=== PATIENT | male | born 1955 | race Caucasian/White ===

== ENCOUNTER 2018-12-27 17:19 | Emergency (ER) | payer OTHER, SELFPAY ==
[2018-12-27 17:20] VITALS: BP 141/84; PULSE 91; RESP 18; TEMP 36.7; O2SAT 98; BMI 29.5
--- NOTE | 2018-12-27 17:57 | CT_ITS ---
STUDY: CT ABDOMEN AND PELVIS WITH CONTRAST REASON FOR EXAM: Male, 63 years old. Midline pain, history of hernia RADIATION DOSAGE (If Supplied By Facility): CTDIvol = ( 17.32 ) mGy, DLP = ( 1003.94 ) mGycm TECHNIQUE: Transaxial images were obtained from the dome of the diaphragm to the symphysis pubis without oral contrast. 15 Oral Gastrografin was administered. Sagittal and coronal images were reconstructed. Individualized dose optimization techniques were used for this CT. COMPARISON: None. FINDINGS: This is a limited non-IV and nonoral contrast study. There is mild scarring within the right middle lobe and right lower lobe.. The visualized portions of the heart are within normal limits. Normal liver. Normal gallbladder and extrahepatic biliary system. Normal spleen. Normal pancreas. Normal bilateral adrenal glands. Normal right kidney. Normal left kidney. Normal visualized stomach. There is a duodenal diverticulum. Normal small intestine. There are scattered colonic diverticula.. The appendix is visualized and appears normal. Normal abdominal aorta. Normal inferior vena cava. Normal retroperitoneum. There is distention of the bladder. There is large midline anterior abdominal wall fatty hernia within the upper abdomen. There is stranding within the fat within the hernia sac and within the adjacent omentum. There is significant multilevel lumbar spine disc osteophyte complexes, central canal and foraminal stenoses CT/Abdomen/Pel W ORAL Cont Only IMPRESSION: Limited non-IV and nonoral contrast study large midline anterior abdominal wall fatty hernia within the upper abdomen. There are inflammatory changes stranding within the fat within the hernia sac and within the adjacent omentum Scattered colonic diverticula, no diverticulitis Duodenal diverticulum Distended bladder Multilevel spondylosis lumbar spine disc osteophyte complexes significant multilevel central canal and foraminal stenoses, this could be further evaluated with MR lumbar spine Electronically Signed: Benjamin Shankar, at 20:15 EDT Tel , Service support ,
[2018-12-27 18:33] LABS: Absolute Lymphocyte Count 5.08 X10^3/ul (0.83-4.51); Absolute Neutrophil Count 2.7 X10^3/uL (2.0-7.7); Basophil# 0.16 X10^3/uL; Basophil% 1.8 % (0-1); Eosinophil# 0.11 X10^3/uL; Eosinophils% 1.2 % (0-5); Hematocrit 41.6 % (40-54); Hemoglobin 14.2 g/dl (13.0-16.5); Lymphocyte # 5.08 X10^3/ul (4.0); Lymphocyte % 56.6 % (19-41); Mean Corp Hgb Conc 34.1 g/gl (32-36); Mean Corpuscular Hgb 36.8 pg (27.0-32.0); Mean Corpuscular Volume 107.8 fL (80-94); Neutrophil # 2.71 X10^3/uL (2.7-7.7); Neutrophil % 30.2 % (47-70); Platelet Count 297 K/mm3 (150-450); RBC Distribution Width CV 13.5 % (11.6-14.6); RBC Distribution Width SD 53.1 fl (35.1-43.9); Red Blood Count 3.86 M/mm3 (4.6-6.2)
[2018-12-27 18:35] LABS: Differential Indicated SCAN CRITERIA MET; POSITIVE COUNT NO; POSITIVE DIFFERENTIAL YES; POSITIVE MORPHOLOGY YES
[2018-12-27 18:51] LABS: Anion Gap 7 (5-15); BUN 18 mg/dL (7-18); BUN/Creat Ratio 13.3 RATIO (10-20); Calcium,Total 8.9 mg/dL (8.5-10.1); Chloride 106 mmol/L (98-107); Creatinine, Serum 1.35 mg/dL (0.70-1.30); EST Glomerular Filtration Rate 57 mL/min (>60); Est Glom Filt Rate - Afr Amer 69 mL/min (>60); Estimated Creatinine Clearance 66.81 ml/min; Glucose 103 mg/dL (74-106); Potassium 4.4 mmol/L (3.5-5.1); Sodium Level 139 mmol/L (136-145)
[2018-12-27 18:54] LABS: Differential Comment SCANNED
[2018-12-27 19:27] VITALS: RESP 16
[2018-12-27 21:38] VITALS: BP 144/85; PULSE 77; RESP 18; O2SAT 100
--- NOTE | 2018-12-27 21:48 | ED.DEP ---
ED Disposition - Plan for ED Patient: Instructions: What Is a Hernia? Referrals: Tamy Betancourt MD [STAFF PHYSICIAN] -
--- NOTE | 2018-12-27 22:04 | ED.VISSUMM ---
- ER Visit Summary Date of Service: 12/27/18 Chief Complaint: Abdominal pain History of Present Illness: The patient is a 63 M presenting with abdominal pain. He states this started 3 weeks ago. He states he initially had fever, nausea, dry heaves. He states the fever and nausea has improved. He continues to have mid abdominal pain. He has a history of a hernia. He has never had this evaluated. He has had it for several years. He believes that the episodes of dry heaving have made his hernia worse. Denies other complaints. Physical Examination: Vitals are stable. Patient is afebrile. Alert no acute distress. HEENT exam is unremarkable. Neck is supple. Lungs are clear and equal bilaterally. Heart is regular rate and rhythm. Abdomen is soft abdominal wall hernia which is soft and reducible. Extremities are unremarkable. Skin is warm and dry. Remainder of exam is unremarkable. Emergency Department Course and Treatment: CBC, chemistries unremarkable other than creatinine 1.35. CT abdomen pelvis shows large midline anterior abdominal wall fatty hernia within the upper abdomen. There are inflammatory changes stranding within the fat within the hernia sac and within the adjacent omentum Scattered colonic diverticula, no diverticulitis. Duodenal diverticulum. Distended bladder. Multilevel spondylosis lumbar spine disc osteophyte complexes significant multilevel central canal and foraminal stenoses, this could be further evaluated with MR lumbar spine. On reevaluation, patient's pain improved. He declined pain medication. Discussed with Dr. Betancourt. She will see the patient in her office. Advised return to ED for worsening symptoms. Disposition: Discharge home Impression: Abdominal wall hernia This note was generated with [employer] dictation software. It may contain incorrect words, spelling, and punctuation that were not noted in review of the chart prior to signing ED Disposition - Plan for ED Patient: Instructions: What Is a Hernia? Referrals: Tamy Betancourt MD [STAFF PHYSICIAN] -
--- NOTE | 2018-12-27 22:18 | ED.RN ---
PT GIVEN WRITTEN AND VERBAL DISCHARGE INSTRUCTIONS. PT VERBALIZES UNDERSTANDING. IV D/C BY TENISHA HERNANDEZ. COVERED WITH 2X2 GAUZE AND PAPER TAPE. PT AMBULATES OUT OF DEPT WITH .
== END 2018-12-27 22:19 | disposition home or self-care (01) ==
PROVIDERS: Emergency Provider Emergency Medicine
DX: K43.9 Ventral hernia without obstruction or gangrene (principal); Z72.0 Tobacco use
CPT/HCPCS: 74176; 80048; 85025; 96374; 96375; 99283; A4216; J2405

== ENCOUNTER 2019-01-18 07:41 | Day surgery (SDC) | payer OTHER, SELFPAY ==
[2018-12-29 09:52] VITALS: BMI 29.5
--- NOTE | 2018-12-29 11:33 | HP_ITS ---
Intake Vital Signs 12/29/18 Body Mass Index (BMI) 29.5 12/29/18 Height 6 ft 1.5 in 12/29/18 Weight: 240 lb 12/29/18 Body Mass Index (BMI) 31.2 12/29/18 Blood Pressure 127/82 H 12/29/18 Blood Pressure Location Rt brachial 12/29/18 Blood Pressure Position Sitting 12/29/18 Respiratory Rate 14 12/29/18 Pulse Rate 85 12/29/18 Pulse Source Monitor 12/29/18 Temperature 98.3 F 12/29/18 Temperature Source Oral 12/29/18 Pulse Ox 97 12/29/18 Oxygen Delivery Method room air Intake Visit Reasons: ABDOMINALHERNIA/SEEN IN ER [employer] S[employer] C[employer] Required: No Is patient in pain?: No Allergies No Known Allergies Allergy (Verified 12/29/18 09:51) Medications NK 12/27/18 [History Confirmed 12/29/18] PFSH Medical History Hernia (Acute) Surgical History Hx of elbow surgery (Acute) Family History Son Asthma Mother Cancer Unknown what type Social History Smoking Status: Never smoker second hand exposure: No alcohol intake: never substance use type: does not use caffeine: Yes what type of physical activity do you participate in: none frequency: does not exercise seatbelt use: always HPI HPI HPI: VEL BLANCO, is a 63 M who presents to the office today for HPI HPI Surgical H&P: Yes HPI: VEL BLANCO, is a 63 M who presents to the office today for ventral hernia. Patient states he has had this for about 20 years. It has gotten bigger over the years. Patient currently denies any abdominal pain however he does have pain with palpation. Patient came to the ER due to abdominal pain which was diffuse. CT abdomen pelvis did show the ventral hernia with intra- abdominal fat. Patient states prior to going to the ER on 12/27/2018 he was sick for about 3 weeks after he scratched by a cat. He states he had fevers and dry heaves denies any diarrhea. Patient notes that the pain on 12/27/2018 after getting a hug at [employer] and it almost dropped into his knees per patient. Patient states the pain was a 10 out of 10 with palpation in the ER but that did improve and he was able be discharged home. Patient is never had any abdominal surgeries. Patient denies any nausea or vomiting currently. Patient states he has daily bowel months denies any blood. Denies any family history of colon cancer. Denies ever having a previous colonoscopy. ROS General General: No weight change or fatigue Gastro Gastrointestinal: Yes abdominal pain (With palpation of the hernia), No nausea or vomiting, No diarrhea, No constipation, No blood in stool, No acid reflux, No hemorrhoids, No ulcers, No gallbladder problem, No black,tarry stools Exam Const General: cooperative, comfortable, no acute distress Resp Effort & Inspection: normal respiratory effort Cardio Rate: regular rate GI Inspection: non-distended Palpation: soft, no guarding, hernia (Ventral hernia about 2-1/2 x 2 and half centimeters on exam, reduce), tender (At hernia with palpation) Assessment & Plan Problems 1. Ventral hernia without obstruction or gangrene K43.9 2. Encounter for screening for malignant neoplasm of colon Z12.11 Plan Discussed with patient that we can do ventral hernia repair with mesh open possible laparoscope to take a look to make sure that the mesh is laying well. Discussed the procedure including but not limited to risk of bleeding, infection, removal of mesh if gotten infected, seroma, injury to the organ i.e. small bowel or colon, recurrent hernia, and anesthesia patient had no further questions this time. Did discuss with patient that he is due for screening colonoscopy and would prefer to do that first prior to placing the mesh. Patient was agreeable to proceed with screening colonoscopy and then will plan to schedule the ventral hernia repair with mesh. I have discussed the above with the patient. I have offered the patient colonoscopy for evaluation. I have explained the risks/benefits of the procedure and described the procedure. I have discussed the risks with the patient, including but not limited to: infection, bleeding, perforation of the GI tract requiring emergency surgery, inability to complete the procedure, injury to any internal organs, complications of anesthesia, etc. - the patient understands and agrees to proceed. I have answered all the patient's questions to the patient's satisfaction and the patient has no further questions. The patient has been given instructions for the colon cleansing preparation. 1 day of clears, MiraLAX Dulcolax split prep Tamy Betancourt M.D. Pager: [phone] [facility] [address] [place] [address], [facility], [address] [place] [id number] Office: [phone] Orders Orders: Colonoscopy Today Plan Detail Follow Up We will schedule screening colonoscopy once complete we will schedule ventral hernia repair with mesh Coding Level of Care Code Off vis,new,level 3 Diagnoses Ventral hernia without obstruction or gangrene K43.9 Encounter for screening for malignant neoplasm of colon Z12.11 12/29/18 1134 <Electronically signed by Tamy Colmenares am, MD> Date _ Tamy Betancourt MD I have re-examined the patient. There are no clinical changes since date of exam.
--- NOTE | 2019-01-18 | COLBX_PTH ---
PATIENT: VEL BLANCO LOC: [facility] U#:[id number] AGE/SX: 63/M ROOM: RE01/18/[address]: Dr. Tamy Betancourt MD : 1955 BED: DIS: 01/18/2019 SPEC #: [id number] RECD: 01/18/19 12:40 STATUS: FELICITY NOEMI #: [id number] BIBI: 01/18/19 00:[address]: Tamy Betancourt DEPT: SURGICAL PATHOLOGY RECD BY: Parker Her ENTERED: 01/18/19 12:41 SP TYPE: COLON BX OTHR DR: No Primary Care Phys Tissues: A - Transverse colon B - Transverse colon C - Descending colon Procedures: Surgery Specimen Level IV HEADER OPERATION: Colonoscopy (MAC) PRE-OP DIAGNOSIS: Screening, ventral hernia TISSUE SUBMITTED: A - Proximal transverse colon polyps, B - Biopsy of proximal transverse colon base polyp, C - Descending colon polyp MICROSCOPIC DIAGNOSIS A. Proximal transverse colon polyps, biopsy: Fragments of tubular adenoma. B. Proximal transverse colon polyp base, biopsy: Fragments of cauterized colonic mucosa. C. Descending colon polyp, biopsy: Focal adenomatous change. AM:klarissa 01/19/19 MICROSCOPIC DESCRIPTION Slides are reviewed. GROSS DESCRIPTION A - Received in fixative is one container labeled with the patient's name and designated proximal transverse colon polyps. The specimen consists of multiple irregular fragments of light walden soft tissue that in aggregate measure 1.5 x 0.5 x 0.1 cm. The specimen is totally submitted in one cassette. B - Received in fixative is one container labeled with the patient's name and designated biopsy of proximal transverse colon base polyp. The specimen consists of multiple irregular fragments of light walden soft tissue that in aggregate measure 0.8 x 0.3 x 0.1 cm. The specimen is totally submitted in one cassette. C - Received in fixative is one container labeled with the patient's name and designated descending colon polyp. The specimen consists of a piece of walden-pink polyp measuring 0.6 x 0.4 x 0.3 cm. The specimen is totally submitted in one cassette. / ARIES:klarissa 01/18/19 TC:5 CPT: 81681 x3
[2019-01-18 07:56] VITALS: BP 131/78; PULSE 87; RESP 16; TEMP 36.9; O2SAT 99; BMI 29.1
[2019-01-18 09:21] VITALS: BP 131/78; BP 95/69; PULSE 82; RESP 18; TEMP 36.8; O2SAT 96
[2019-01-18 09:25] VITALS: BP 100/74; BP 131/78; PULSE 77; RESP 16; O2SAT 96
[2019-01-18 09:30] VITALS: BP 108/77; BP 131/78; PULSE 77; RESP 16; O2SAT 96
[2019-01-18 09:37] VITALS: BP 110/79; BP 131/78; PULSE 75; RESP 16; TEMP 36.9; O2SAT 97
[2019-01-18 10:00] VITALS: BP 131/78
--- NOTE | 2019-01-20 10:45 | OP.ENDO_ITS ---
01/20/2019 No Primary Care Physician Re : [facility] This procedure was performed on Friday, January 18, 2019. My impressions and recommendations are as follows: Impressions : - Hemorrhoids found on perianal exam. - One 5 mm polyp in the descending colon, removed with a hot snare. Resected and retrieved. Injected. - One 5 to 7 mm polyp in the proximal transverse colon, removed with a cold biopsy forceps. Resected and retrieved. Biopsied. Recommendations : - Await pathology results. - Discharge patient to home. - Continue present medications. - Repeat colonoscopy in 1 year for surveillance after piecemeal polypectomy. My findings are described in the full procedure note, which is enclosed. If I can be of further assistance, please feel free to contact me at Doctor phone number(s): , Work: . Sincerely, MD Tamy Winter MD 01/18/2019 9:23:42 AM This report has been signed electronically.
== END 2019-01-18 10:05 | disposition home or self-care (01) ==
LOC: EN 07:41 → AC 07:42
PROVIDERS: Referring Provider Surgery; Visit Provider Surgery
PROC: 0DJD8ZZ Inspection of Lower Intestinal Tract, Via Natural or Artificial Opening Endoscopic (ICD-10-PCS; CPT 45378; principal; 2019-01-18 08:40)
DX: Z12.11 Encounter for screening for malignant neoplasm of colon (principal); D12.3 Benign neoplasm of transverse colon; D12.4 Benign neoplasm of descending colon; K64.0 First degree hemorrhoids; K43.9 Ventral hernia without obstruction or gangrene; F17.200 Nicotine dependence, unspecified, uncomplicated
CPT/HCPCS: 45380; 88305; J7120; A4216

== ENCOUNTER 2019-02-17 05:54 | Day surgery (SDC) | payer OTHER, SELFPAY ==
--- NOTE | 2019-02-17 06:10 | EKG12_ITS ---
Test Reason : PRE OP Blood Pressure : / mmHG Vent. Rate : 076 BPM Atrial Rate : 076 BPM P-R Int : 190 ms QRS Dur : 100 ms QT Int : 388 ms P-R-T Axes : 073 050 050 degrees QTc Int : 436 ms Normal sinus rhythm Normal ECG No previous ECGs available Confirmed by TATYANA NICHOLS ([id number]), deputy editor in chief SHO AMOR ([id number]) on 02/19/2019 8:53:03 AM Referred By: Tamy Betancourt Confirmed By:TATYANA NICHOLS
[2019-02-17 06:39] VITALS: BP 110/75; PULSE 67; RESP 16; TEMP 36.9; O2SAT 95; BMI 28.1
--- NOTE | 2019-02-17 07:03 | HP.PCM_ITS ---
History of Present Illness Date of Admission: 02/17/19 The patient is a 64 year old M presented for ventral hernia repair with mesh. Patient still admits to pain at the ventral hernia with palpation but otherwise denies any other abdominal pain denies any abdominal surgeries or nausea or vomiting. Patient did have a colonoscopy January 2019 which showed couple tubular adenomas. Patient has been having regular bowel function. Past Medical History Medical History: Medical History (Last Reviewed 12/29/18 @ 09:52 by Radha Swain) Hernia (Acute) K46.9 Allergies No Known Allergies Allergy (Verified 02/17/19 06:38) Home Medications: Ambulatory Orders Medication Instructions Recorded NK 12/27/18 Surgical History: Surgical History (Last Reviewed 12/29/18 @ 09:52 by Radha Swain) Hx of elbow surgery (Acute) Z98.890 left Surgical History: - - Colonoscopy Psychiatric History: No pertinent psych hx Smoking Status: Current every day smoker Tobacco Use: Cigarettes - *Family History Maternal Family History: Family History (Last Reviewed 12/29/18 @ 09:52 by Radha Swain) Son Asthma Mother Cancer History Items: No pertinent history VTE Information - Inpt Only VTE Present on Admission: Yes VTE Mechan Device Prophylaxis: SCD's - Physical Exam General: Alert, Oriented x3, Cooperative, No apparent distress HEENT: Atraumatic Lungs: Normal air movement Cardiovascular: Regular rate Abdomen: Soft, Non-Distended, Tender - At epigastric ventral hernia, reducible, no peritoneal signs Extremities: No clubbing, No cyanosis, No edema Neurological: Cranial nerves II-XII grossly intact Psych/Mental Status: Normal Affect Vital Signs Temp Pulse Resp BP Pulse Ox 98.4 F 67 16 110/75 95 02/17/19 06:39 02/17/19 06:39 02/17/19 06:39 02/17/19 06:39 02/17/19 06:39 Oxygen Delivery Method Room Air Weight: 219 lb 9.286 oz Body Mass Index (BMI) 28.1 Assessment/Plan All Active Problems (Last Reviewed 12/29/18 @ 09:52 by Radha Swain) Hx of elbow surgery (Acute) Hernia (Acute) 64-year-old male with ventral hernia 1. Did review the procedure of ventral hernia repair with mesh, possible laparoscopic. Include risk but not limited to bleeding, infection, injury to another organ i.e. small bowel/colon, etc., recurrent hernia and anesthesia. Patient had no further questions this time. Tamy Betancourt M.D. Pager: [phone] [facility] [address] [place] [address] [address] [place] [address] Office: [phone]
[2019-02-17] MEDS: Cefazolin 2 GM in 0.9% Normal Saline 100 ML IV (07:24)
--- NOTE | 2019-02-17 07:30 | HERN_PTH ---
PATIENT: VEL BLANCO LOC: [facility] U#:[id number] AGE/SX: 64/M ROOM: RE02/17/[address]: Dr. Tamy Betancourt MD : 1955 BED: DIS: 02/17/2019 SPEC #: [id number] RECD: 02/17/19 12:17 STATUS: FELICITY FRANKLIN #: [id number] BIBI: 02/17/19 07:[address]: Tamy Betancourt DEPT: SURGICAL PATHOLOGY RECD BY: Janes Craig ENTERED: 02/17/19 12:40 SP TYPE: Hernia OTHR DR: No Primary Care Phys Tissues: HERNIA Procedures: Surgery Specimen Level II HEADER OPERATION: Possible lap, ventral hernia repair with mesh PRE-OP DIAGNOSIS: Ventral hernia TISSUE SUBMITTED: Hernia sac MICROSCOPIC DIAGNOSIS Hernia sac: A piece of fibroadipose tissue, consistent with hernia sac. SJ:klarissa 02/18/19 MICROSCOPIC DESCRIPTION Slides are reviewed. GROSS DESCRIPTION Received in fixative is one container labeled with the patient's name and designated hernia sac. The specimen consists of an irregular piece of walden soft tissue measuring 7 x 2.5 x 1 cm. No mass lesion is identified. Court Usher sections are submitted in one cassette. / SJ:klarissa 02/17/19 TC:5 CPT: 76286
--- NOTE | 2019-02-17 08:33 | OP.PCM_ITS ---
Report of Operation Date of Procedure: 02/17/19 Pre-Operative Diagnosis: Ventral hernia Post-Operative Diagnosis: Same Surgery/Procedure Performed:: Open ventral hernia repair with mesh director fixed income: Lashanda Arrington Type of Anesthesia:: General/Supplemental Anesthesiologist: Delvis Rey Special Medications: Ancef 2 g IV x1 Specimen's removed: Hernia sac Estimated Blood Loss (mL): < 10 cc Description of Procedure: Patient was brought into the room placed supine on the operating table. Correct patient, procedure, site, positioning, special, was verified prior to procedure. General anesthesia was induced. The abdomen was prepped draped in usual sterile fashion. A upper midline incision was made with a 15 blade scalpel over the area of the hernia. This was deepened with electrocautery. Hernia sac was identified and dissected from the subcutaneous tissue. The fascia around the hernia defect was cleared including below the fascia and the hernia defect measured 3 cm in width and 2.5 cm in height. A ventralex ST hernia patch (6.4 cm diameter, lot [id number] ref [id number]) was placed and assured to be lying flat against the fascia. Interrupted 0 Nurolon sutures were secure the mesh superior, inferiorly, and laterally. The defect was also closed with 0 Nurolon [id number] sutures x2. The wound was irrigated with saline. Hemostasis was assured. The incision was closed with 3-0 Vicryl subdermal interrupted sutures and the skin was closed with running 4-0 Monocryl sutures. Steri-Strips and Tegaderm, 4 x 4 gauze and OpSite were placed over the incision. Patient was extubated. Patient tolerated procedure well and was taken to the postanesthesia care unit in stable condition. Grafts/Implants Used: Ventralex ST hernia patch, 6.4 cm diameter, lot [id number] ref [id number] - Complications none - Admit VTE Documentation VTE Present on Admission: Yes VTE Mechan Device Prophylaxis: SCD's
--- NOTE | 2019-02-17 08:41 | DCINST_ITS ---
Discharge Diet: Light diet - advance as tolerated Discharge Activity: May not drive while taking narcotic pain medications. May shower in (days): 3 - Keep incision site and dry x3 days okay to low shower and upper sponge bath or take a Ziploc bag and tape off the edges when showering Lifting Restrictions: No lifting greater than 20 pounds x 3 weeks. Call your doctor if your incision/area has: Continuous Slow Oozing, Sudden Increased Bleeding, Increased Pain/ Swelling, Increased Redness, Foul Smelling Discharge, Swelling at the incision site Call your doctor if you observe: Fever of 101 or Higher Remove Dressing in (days):: 3 - Once remove the original dressing replace dressing with a pressure type dressing daily x4 more days. Additional Instructions: Okay to take ibuprofen 400-600 mg PO q6hr PRN along with the percocet . Avoid Tylenol since there is already Tylenol in the percocet. Take all pain meds with food. percocet can cause constipation recommend taking daily stool softener (i.e. Colace/docusate) while taking the pain meds. Recommend starting some MiraLAX in 1 to 2 days if no bowel movement. If still no bowel movement the following day recommend taking magnesium citrate half the bottle and waiting 4-6 hours if still no results take the other half the bottle. Allergies/Adverse Reactions: Allergies No Known Allergies Allergy (Verified 02/17/19 06:38) Medications to take at Discharge Oxycodone HCl/Acetaminophen [Percocet 5/325] 1 - 2 tab PO Q6H PRN PRN 3 Days #15 tab 02/17/19 The following prescriptions were given: Oxycodone HCl/Acetaminophen [Percocet 5/325] 1 - 2 tab PO Q6H PRN PRN 3 Days #15 tab PRN Reason: Pain Transmission Status: Received by LELAND TUCKERRadha N [facility] Primary Care Physician: Care Physician,No Primary [Primary Care Provider] - Test Results: Test results from this visit will be discussed in further detail at your follow- up appointment, if applicable. Please Follow Up With: Tamy Betancourt MD - After 5 PM/weekends call [phone] with any concerns When: Call the office for follow-up appointment in 2 weeks. Proposed Discharge Date: 02/17/19
[2019-02-17] MEDS: Bupivacaine 0.5% PF 10 ML VIAL (08:43)
[2019-02-17 08:51] VITALS: BP 110/75; BP 118/82; PULSE 81; RESP 16; TEMP 36.6; O2SAT 92
[2019-02-17 09:00] VITALS: BP 110/75; BP 110/80; PULSE 70; RESP 16; O2SAT 94
[2019-02-17 09:15] VITALS: BP 110/75; BP 111/75; PULSE 65; RESP 16; O2SAT 95
[2019-02-17 09:30] VITALS: BP 110/75; BP 117/75; PULSE 67; RESP 16; TEMP 36.1; O2SAT 98
[2019-02-17 11:38] VITALS: BP 110/75; BP 147/85; PULSE 78; RESP 16; TEMP 36.8; O2SAT 98
== END 2019-02-17 11:43 | disposition home or self-care (01) ==
LOC: SDC 05:56 → AC 05:57
PROVIDERS: Referring Provider Surgery; Visit Provider Surgery
PROC: 0WQF4ZZ Repair Abdominal Wall, Percutaneous Endoscopic Approach (ICD-10-PCS; CPT 49560; principal; 2019-02-17 07:10)
DX: K43.9 Ventral hernia without obstruction or gangrene (principal); F17.210 Nicotine dependence, cigarettes, uncomplicated
CPT/HCPCS: 00752; 49560; 49568; 88302; 93005; C1781; J7120; J2405

== ENCOUNTER 2023-03-18 00:26 | Emergency (ER) | payer OTHER, SELFPAY ==
[2023-03-18 00:27] VITALS: BP 155/97; PULSE 86; RESP 18; TEMP 36.7; O2SAT 100; BMI 27.6
--- NOTE | 2023-03-18 00:35 | EKG12_ITS ---
Test Reason : Blood Pressure : / mmHG Vent. Rate : 073 BPM Atrial Rate : 073 BPM P-R Int : 194 ms QRS Dur : 096 ms QT Int : 372 ms P-R-T Axes : 064 025 057 degrees QTc Int : 409 ms Sinus rhythm with Premature supraventricular complexes Otherwise normal ECG Confirmed by ANNMARIE GREEN, LIZ ([id number]), photographic editor SHERITA JOHNSON ([id number]) on 04/10/2023 2:25:28 PM Referred By: Confirmed By:HARINI ANGUIANO MD
--- NOTE | 2023-03-18 00:51 | RAD_ITS ---
INDICATION: Chest pain EXAMINATION/TECHNIQUE: X-RAY - XR Chest 1 View COMPARISON: None. FINDINGS: LINES/DEVICES: None. LUNGS: Hyperexpanded lungs. No pulmonary edema or focal airspace consolidation. No sizable pleural effusion. No pneumothorax detected. MEDIASTINUM AND CARDIOVASCULAR STRUCTURES: Heart size within normal limits. Mediastinal contours unremarkable. BONES AND SOFT TISSUES: No acute findings. RAD/Chest 1 View (Portable) IMPRESSION: COPD Electronically Signed: Gary Bone MD at 2:06 EDT ,
[2023-03-18 00:58] LABS: Absolute Lymphocyte Count 2.65 X10^3/uL (0.83-4.51); Absolute Neutrophil Count 4.4 X10^3/uL (2.0-7.7); Basophil% 1.2 % (0-1); Eosinophil# 0.26 X10^3/uL; Eosinophils% 3.1 % (0-5); Hematocrit 38.3 % (40-54); Hemoglobin 12.9 g/dL (13.0-16.5); Lymphocyte # 2.65 X10^3/ul (0.83-4.51); Lymphocyte % 31.6 % (19-41); Mean Corp Hgb Conc 33.7 g/dL (32-36); Mean Corpuscular Hgb 39.2 pg (27.0-32.0); Mean Corpuscular Volume 116.4 fL (80-94); Mean Platelet Vol. 9.8 fl (6.2-12.0); Monocyte# 0.98 X10^3/uL; Monocyte% 11.7 % (0-10); NRBC Flagged by Analyzer 0 % (0-5); Neutrophil # 4.36 X10^3/uL (2.7-7.7); Neutrophil % 51.9 % (47-70); Platelet Count 294 K/mm3 (150-450); RBC Distribution Width CV 13.1 % (11.6-14.6); RBC Distribution Width SD 56.4 fl (35.1-43.9); Red Blood Count 3.29 M/mm3 (4.6-6.2); White Blood Count 8.4 K/mm3 (4.4-11.0)
[2023-03-18 01:23] LABS: Anion Gap 5 (5-15); BUN 16 mg/dL (7-18); BUN/Creat Ratio 12.5 RATIO (10-20); Calcium,Total 9.1 mg/dL (8.5-10.1); Chloride 109 mmol/L (98-107); Creatinine, Serum 1.28 mg/dL (0.70-1.30); EST Glomerular Filtration Rate 60 mL/min (>60); Est Glom Filt Rate - Afr Amer 72 mL/min (>60); Estimated Creatinine Clearance 64.16 ml/min; Glucose 117 mg/dL (74-106); Potassium 4.1 mmol/L (3.5-5.1); Sodium Level 140 mmol/L (136-145); Thyroid Stim Hormone (TSH) 3.73 uIU/mL (0.358-3.74); Troponin-I HS (w/2H Reflex) 6 pg/mL (3.0-78.0)
[2023-03-18] MEDS: 0.9% Normal Saline 1,000 ML 150 ML IV (01:23)
[2023-03-18 01:27] VITALS: BP 118/71; PULSE 69; RESP 16; O2SAT 95
--- NOTE | 2023-03-18 02:05 | EDS_ITS ---
HPI History of Present Illness Chief Complaint: Palpitations Informant: patient Narrative Narrative: Patient presents secondary palpitations. He states that when he was going to bed tonight around 1130 he felt his heart was racing and beating hard up into his lower neck. He did not have chest pain. He denies the sensation that he was going to pass out. States has had this happen intermittently before but melisa's episode was more severe. He admits he does not have a primary care physician. He does not take any prescription medications. He denies change in caffeine consumption or any [id number] medications. [facility] Medical History Hernia Home Medications NK 03/05/19 [History Last Taken Unknown] Allergy/AdvReac Type Severity Reaction Status Date / Time No Known Allergies Allergy Verified 03/18/23 00:29 Family History Son Asthma Mother Cancer Unknown what type Surgical History history open ventral hernia repair (~02/17/19) Hx of elbow surgery Social History Smoking Status: Never smoker second hand exposure: No alcohol intake: never substance use type: does not use caffeine: Yes what type of physical activity do you participate in: none frequency: does not exercise seatbelt use: always ROS ROS ED Constitutional Constitutional ED: Denies chills or fever(s) Eyes Eyes: Denies change in vision ENT ENT ED: Denies rhinorrhea or sore throat Cardiovascular Cardiovascular: Reports palpitations and racing heartbeat; Denies chest pain Respiratory/Chest Respiratory/Chest: Denies cough or dyspnea Gastrointestinal Gastrointestinal: Denies abdominal pain, nausea or vomiting Genitourinary Genitourinary ED: Denies difficulty urinating or dysuria Musculoskeletal Musculoskeletal: Denies back pain or extremity pain Integumentary Denies Abrasions or rash Neurologic Neurologic: Denies headache(s) or weakness Psychiatric Psychiatric: Denies anxiety or depression Allergic/Immunologic Allergic/Immunologic ED: Denies lip swelling or urticaria EXAM Physical Exam Const Vital Signs: 03/18/23 00:27 03/18/23 00:56 03/18/23 01:27 Temperature 98.0 F Temperature Source Temporal Pulse Rate 86 69 Respiratory Rate 18 16 Respiratory Effort Normal Non-Labored Blood Pressure 155/97 H 118/71 Blood Pressure Mean 116 86 Pulse Ox 100 95 Oxygen Delivery Method Room Air Room Air Positive well nourished and well developed General Appearance ED: well developed HEENT Reports normocephalic and head/scalp atraumatic Eyes PERRL and EOMs intact bilaterally Neck supple Chest Wall inspection of chest normal and palpation of chest normal Resp normal respiratory effort and clear to auscultation bilaterally Cardio regular rate and regular rhythm GI non-tender Palpation: soft Extremity normal to inspection Neuro oriented x3 and no sensory deficits noted Sensorium / Orientation: alert Motor Exam: strength 5/5 throughout Psych mental status grossly normal Skin no rashes or lesions noted MDM MDM MDM Narrative Medical decision making narrative: Patient placed on bus monitor. EKG obtained to evaluate for cardiac arrhythmia/ischemia. Chest x-ray obtained to evaluate for acute lung pathology, cardiac size, or mediastinal abnormality. Labwork obtained to evaluate for leukocytosis, anemia, and electrolyte derangement. Lab Data Attestation: I reviewed the patient's lab results. Labs: Laboratory Results - last 24 hr 03/18/23 03/18/23 00:45 03:07 WBC 8.4 RBC 3.29 L Hgb 12.9 L Hct 38.3 L MCV 116.4 H MCH 39.2 H MCHC 33.7 RDW Std Deviation 56.4 H RDW Coeff of Pat 13.1 Plt Count 294 MPV 9.8 Immature Gran % (Auto) 0.500 Neut % (Auto) 51.9 Lymph % (Auto) 31.6 [place] % (Auto) 11.7 H Eos % (Auto) 3.1 Baso % (Auto) 1.2 H Absolute Neuts (auto) 4.4 Absolute Lymphs (auto) 2.65 Nucleated RBC % 0 Sodium 140 Potassium 4.1 Chloride 109 H Carbon Dioxide 26.0 Anion Gap 5 BUN 16 Creatinine 1.28 Estim Creat Clear Calc 64.16 Est GFR (MDRD) Af Amer 72 Est GFR (MDRD) Non-Af 60 BUN/Creatinine Ratio 12.5 Glucose 117 H Calcium 9.1 Troponin I High Sens 6 7 TSH 3.73 Radiography Chest X-Ray - ED: 1 View, Read by ED Physician, Normal, Heart, Lungs and Mediastinum Diagnostic Testing: Clinical Impression(s) from Imaging Studies Chest X-Ray 03/18/23 00:51 IMPRESSION: COPD Electronically Signed: Gary Bone MD at 2:06 EDT , EKG Initial EKG: Attestation: I personally reviewed and interpreted this EKG as follows: Interpretation: Sinus Rhythm (Sinus at 73 with occasional PACs. No acute ischemia.) Treatment and Re-Evaluation :: CBC was normal white count 8.4 with hemoglobin slightly low at 12.9. Chemistry studies are unremarkable with normal potassium. Renal function is normal. Troponin is normal at 6 and TSH is normal at 3.73. Portable chest x-ray per my interpretation reveals no acute abnormalities. EKG is sinus rhythm with PACs. No acute ischemia. 2-hour repeat troponin is also normal at 7. Patient continues to feel well and denies palpitations at this time. Patient will be referred to Dr. Miller for follow-up, next on the no doc list. Return instructions are given. Discharge Plan Triage Chief Complaint: Palpitations ED Provider: Ailyn Limon Dx/Rx/DC Orders Clinical Impression: Palpitations Instructions: ED Palpitations Prescriptions: No Action NK Primary Care Provider: Care Physician,No Primary Referrals: Colt Miller MD [Med Staff - Active Staff] - As Needed Care Physician,No Primary [Primary Care Provider] - Disposition Disposition: Home, Self Care
[2023-03-18 02:55] LABS: Reflex Troponin-HS? (from REC) Y
[2023-03-18 03:30] LABS: Troponin-I HS 7 pg/mL (3.0-78.0)
[2023-03-18 03:57] VITALS: BP 124/78; PULSE 61; RESP 15; O2SAT 98
== END 2023-03-18 03:59 | disposition home or self-care (01) ==
PROVIDERS: Emergency Provider Emergency Medicine; Visit Provider Emergency Medicine
DX: R00.2 Palpitations (principal)
CPT/HCPCS: 71045; 80048; 84443; 84484; 85025; 93005; 99283; J7030; A4216